=== PATIENT | female | born 1970 | race Caucasian/White ===

== ENCOUNTER 2021-08-26 10:08 | Emergency (ER) | payer MEDICAID, OTHER ==
[~2021-08-26] VITALS: Ht 175.3 cm; Wt 84.8 kg
[2021-08-26 11:08] LABS: HEMATOCRIT 38.7 % (31.2-41.9); MEAN CORPUSCULAR HEMOGLOBIN 28.9 uug (24.7-32.8); MEAN CORPUSCULAR VOLUME 85.6 fL (75.5-95.3); PLATELET COUNT (AUTO) 271 K/uL (179-408)
[2021-08-26 11:15] LABS: CREATININE 0.7 mg/dL (0.6-1.3); POTASSIUM 3.9 mmol/L (3.5-5.1)
[2021-08-26] MEDS ORDERED: KETOROLAC TROMETHAMINE 30 MG INJ ONE (11:29)
[2021-08-26] MEDS ORDERED: KETOROLAC TROMETHAMINE 30 MG INJ IM ONE (11:30)
--- NOTE | 2021-08-26 12:14 | NUR ---
Patient discharged to home in stable condition with brisk steady gait. Written and verbal after care instructions given. Patient verbalized understanding and compliance of instructions. Stressed follow up with primary doctor or return to ER for worsening s/s.
[2021-08-26 12:16] VITALS: BP 126/70
== END 2021-08-26 12:14 | disposition home or self-care (01) ==
LOC: ER 10:12
DX: M54.9 Dorsalgia, unspecified (principal); R07.81 Pleurodynia; R22.2 Localized swelling, mass and lump, trunk; Z88.6 Allergy status to analgesic agent; Z88.0 Allergy status to penicillin
CPT/HCPCS: 36415; 71045; 80048; 85025; 85379; 96372; 99284; J1885; A4663

== ENCOUNTER 2021-10-14 21:21 | Emergency (ER) | payer MEDICAID ==
[~2021-10-14] VITALS: Ht 175.3 cm; Wt 84.8 kg
--- NOTE | 2021-10-14 21:38 | NUR ---
pt in room 3 c/o sob and right arm pain.
--- NOTE | 2021-10-14 21:43 | NUR ---
Dr. Nguyen at bedside for MSE.
[2021-10-14] MEDS ORDERED: OXYCODONE/APAP 5-325 MG TABLET ONE (21:57)
[2021-10-14] MEDS ORDERED: OXYCODONE/APAP 5-325 MG TABLET PO ONE (22:00)
[2021-10-14] MEDS ORDERED: IV NS 1000 ML 1,000 ML IV ONE (22:00)
[2021-10-14 22:24] LABS: HEMATOCRIT 26.3 % (31.2-41.9); MEAN CORPUSCULAR HEMOGLOBIN 29.9 uug (24.7-32.8); MEAN CORPUSCULAR VOLUME 85.7 fL (75.5-95.3); PLATELET COUNT (AUTO) 336 K/uL (179-408)
[2021-10-14 22:32] LABS: CREATININE 0.8 mg/dL (0.6-1.3); POTASSIUM 3.6 mmol/L (3.5-5.1)
--- NOTE | 2021-10-14 23:31 | NUR ---
Dr. Nguyen in to speak with the pt.
--- NOTE | 2021-10-14 23:41 | NUR ---
pt ambulated to the bathroom for u/a pt with steady gait.
[2021-10-14 23:50] LABS: *BILIRUBIN,URIN NEGATIVE (NEGATIVE); *BLOOD, URINE NEGATIVE (NEGATIVE); *CLARITY,URINE CLEAR (CLEAR); *COLOR,URINE YELLOW (YELLOW); *KETONES,URINE NEGATIVE (NEGATIVE); *UROBILINOGEN,URINE 0.2 E.U./dl (NORMAL); LEUKOCYTE ESTERASE ,URINE NEGATIVE (NEGATIVE); NITRITE, URINE NEGATIVE (NEGATIVE); PH,URINE 8.5 (5.0-8.0); UGLUCOSE NEGATIVE (NEGATIVE)
[2021-10-15 00:05] LABS: *URINE HCG, QUAL NEGATIVE (NEGATIVE)
[2021-10-15] MEDS ORDERED: IOHEXOL 300MG/ML 100 ML INFUS..BTL ONE (00:16)
[2021-10-15] MEDS ORDERED: SWABABLE VALVE TRANSFER SET EA MC ONE (00:16)
[2021-10-15] MEDS ORDERED: IV NORMAL SALINE 250 ML IV ONE (00:17)
[2021-10-15] MEDS ORDERED: IV NS 1000 ML 1,000 ML IV ONE (00:30)
--- NOTE | 2021-10-15 00:52 | NUR ---
pt taken to cat scan.
--- NOTE | 2021-10-15 01:07 | NUR ---
pt returned from cat scan.
[2021-10-15] MEDS ORDERED: OXYC-128 PO (01:33)
[2021-10-15 02:08] LABS: IRON, SERUM 22 ug/dL (50-175)
[2021-10-15] MEDS ORDERED: FERR325T28 PO (02:54)
[2021-10-15 03:02] VITALS: BP 110/60
== END 2021-10-15 03:02 | disposition home or self-care (01) ==
LOC: ER 21:24
DX: R07.9 Chest pain, unspecified (principal); R06.00 Dyspnea, unspecified; R00.0 Tachycardia, unspecified; I45.10 Unspecified right bundle-branch block; D50.9 Iron deficiency anemia, unspecified; Z88.5 Allergy status to narcotic agent; Z88.0 Allergy status to penicillin; G89.18 Other acute postprocedural pain
CPT/HCPCS: 36415; 71045; 71260; 80048; 81003; 83550; 83605; 83735; 84703; 85025; 85379; 93005; 96360; 96361; 99285; J7040 ×2; Q9967; A4663

== ENCOUNTER 2022-05-15 21:06 | Emergency (ER) | payer MEDICAID ==
[~2022-05-15] VITALS: Ht 175.3 cm; Wt 73.5 kg
[~2022-05-15 21:06] MED LIST: FERR325T28 PO; OXYC-128 PO
--- NOTE | 2022-05-15 21:32 | NUR ---
Patient informed of plan of care, MD at bedside at this time for exam. Patient was given a gown and has been placed on the monitor. No s/s of any distress noted at this time. C/o vaginal bleeding and possible strep throat.
[2022-05-15] MEDS ORDERED: OXYCODONE/APAP 5-325 MG TABLET PO ONE (21:45)
[2022-05-15] MEDS ORDERED: OXYCODONE/APAP 5-325 MG TABLET ONE (21:48)
--- NOTE | 2022-05-15 21:51 | NUR ---
patient medicated as per order for pain and set up for pelvic exam.
--- NOTE | 2022-05-15 22:13 | NUR ---
Throat swab done and sent to lab.
[2022-05-15 22:17] LABS: HEMATOCRIT 36.6 % (31.2-41.9); MEAN CORPUSCULAR HEMOGLOBIN 28.8 uug (24.7-32.8); MEAN CORPUSCULAR VOLUME 86.2 fL (75.5-95.3); PLATELET COUNT (AUTO) 276 K/uL (179-408)
[2022-05-15 22:19] LABS: POTASSIUM 3.5 mmol/L (3.5-5.1)
[2022-05-15] MEDS ORDERED: AZITHROMYCIN 250 MG TABLET PO ONE (22:45)
[2022-05-15] MEDS ORDERED: AZITHROMYCIN 250 MG TABLET ONE ×2 (23:49→23:51)
--- NOTE | 2022-05-16 00:05 | NUR ---
Bedside pelvic done at this time.
[2022-05-16] MEDS ORDERED: AZIT500T PO (00:10)
[2022-05-16] MEDS ORDERED: HYDR-3980 PO (00:10)
[2022-05-16 00:22] VITALS: BP 138/74
== END 2022-05-16 00:23 | disposition home or self-care (01) ==
LOC: ER 21:06
DX: J02.9 Acute pharyngitis, unspecified (principal); E83.42 Hypomagnesemia; N93.9 Abnormal uterine and vaginal bleeding, unspecified; Z88.0 Allergy status to penicillin
CPT/HCPCS: 36415; 83735; 85025; 86403; A4663; Q0144